=== PATIENT | male | born 1945 | race Caucasian/White ===

== ENCOUNTER 2017-01-16 12:20 | Observation (INO) | payer MEDICARE, BC ==
[2017-01-16] MEDS ORDERED: Aspirin Low Dose CHEW TAB* 81 MG PO ONE (12:37)
--- NOTE | 2017-01-16 13:05 | RAD ---
HISTORY: Syncope, chest pain COMPARISONS: None VIEWS: 1: frontal portable view of the chest at 12:45 PM FINDINGS: LINES AND TUBES: A left-sided AICD pacemaker is noted. Shunt tubing is noted along the right chest. CARDIOMEDIASTINAL SILHOUETTE: The cardiomediastinal silhouette is normal for portable technique. PLEURA: The costophrenic angles are sharp. No pleural abnormalities are noted. LUNG PARENCHYMA: The lungs are clear. ABDOMEN: The upper abdomen is clear. There is no subphrenic gas. BONES AND SOFT TISSUES: The patient is status post median sternotomy. IMPRESSION: NO ACTIVE CARDIOPULMONARY DISEASE.
[2017-01-16] MEDS ORDERED: NS 0.9% 1000 ML* 1,000 ML IV SCH ×2 (13:15→16:45)
[2017-01-16 13:16] LABS: Hematocrit 38 % (42-52); Hemoglobin 12.8 g/dl (14.0-18.0); Mean Corpuscular HGB Conc 34 g/dl (31-36); Mean Corpuscular Hemoglobin 34 pg (27-31); Mean Corpuscular Volume 99 fL (80-94); Mean Platelet Volume 8 um3 (7.4-10.4); Red Cell Distribution Width 13 % (10.5-15); White Blood Count 5.4 10^3/ul (3.5-10.8)
[2017-01-16 13:32] LABS: Albumin 3.7 g/dL (3.2-5.2); BUN/Creatinine Ratio 13.5 (8-20); Calcium 8.8 mg/dL (8.6-10.3); EGFR African American 72.3 (>60); EGFR Non-African American 56.3 (>60); Globulin 2.6 g/dL (2-4); Magnesium 2.2 mg/dL (1.9-2.7); Potassium 4.3 mmol/L (3.5-5.0); Total Bilirubin 0.4 mg/dL (0.2-1.0); Total Protein 6.3 g/dL (6.4-8.9)
[2017-01-16 13:33] LABS: Troponin I 0.02 ng/mL (<0.04)
[2017-01-16 14:43] LABS: TSH (Thyroid Stimulating Horm) 2.07 mcIU/mL (0.34-5.60)
[2017-01-16] MEDS ORDERED: NS 0.9% 250 ML* 250 ML IV ONE (15:26)
--- NOTE | 2017-01-16 16:09 | ED ---
Mariela Coronel Alfonso, scribed for Rubén Harvey MD on 01/16/17 at 1312 . Syncope/Near Syncope - HPI Summary HPI Summary: This patient is a 71 year old M BIBA to [facility] accompanied by with a chief complaint of syncope episode at [facility] that lasted about 15 minutes this morning. Pts reports that he just limped out. Pt reports having a defibrillator/pacemaker which was doing funny things. The patient rates the pain 1/10 in severity. Symptoms aggravated by nothing. Symptoms alleviated by spontaneous resolution. Patient reports recent illness (cold), LOC, pallor, low blood pressure, weakness, and diaphoresis. Patient denies loss of appetite, chest pain, palpations, melena, nausea, blood in stool, SOB, abdominal pain, and calf swelling. - History Of Current Complaint Chief Complaint: EDSyncope Time Seen by Provider: 01/16/17 12:51 Hx Obtained From: Patient Onset/Duration: Sudden Onset, Resolved Timing: Constant Context: Witnessed Activity At Onset: Other - evangelical Aggravating Factor(s): Nothing Alleviating Factor(s): Spontaneous Resolution Associated Signs And Symptoms: Other - recent illness (cold), LOC, pallor, low blood pressure, weakness, and diaphoresis. Patient denies loss of appetite, chest pain, palpations, melena, nausea, blood in stool, SOB, abdominal pain, and calf swelling. - Allergies/Home Medications Allergies/Adverse Reactions: Allergies Allergy/AdvReac Type Severity Reaction Status Date / Time Amiodarone Allergy Severe Difficulty Verified 01/16/17 12:48 Breathing JENNIFER Inhibitors Allergy Mild See Comment Verified 01/16/17 12:48 Aspirin [ASA] Allergy Mild Rash Verified 01/16/17 12:48 Beta Adrenergic Blockers Allergy Mild See Comment Verified 01/16/17 12:48 Clopidogrel [From Plavix] Allergy Mild See Comment Verified 01/16/17 12:48 Isosorbide Nitrate Allergy Unknown Verified 01/16/17 12:48 [From Imdur] Reaction Details IVP dye Allergy Mild Hives Uncoded 01/16/17 12:48 PMH/Surg Hx/FS Hx/Imm Hx Previously Healthy: No Endocrine/Hematology History: Reports: Hx Diabetes Cardiovascular History: Reports: Hx Congestive Heart Failure, Hx Coronary Artery Disease, Hx Hypercholesterolemia, Hx Hypertension Musculoskeletal History: Reports: Hx Osteoporosis Infectious Disease History: No Infectious Disease History: Denies: Traveled Outside the [place] in Last 30 Days - Family History Known Family History: Positive: Cardiac Disease - [place], Other - lung cancer, blood cancer - Social History Alcohol Use: None Hx Substance Use: No Substance Use Type: Reports: None Hx Tobacco Use: No Smoking Status (MU): Never Smoked Tobacco Review of Systems Positive: Skin Diaphoresis, Other - recent illness (cold) Positive: Other - low blood pressure. Negative: Palpitations, Chest Pain Negative: Shortness Of Breath Positive: Other - negative melena, blood in stool, loss of appetite. Negative: Abdominal Pain, Nausea Negative: Edema Positive: Other - Pallor Neurological: Other - LOC Positive: Weakness, Syncope All Other Systems Reviewed And Are Negative: Yes Physical Exam - Summary Physical Exam Summary: General: well-appearing, no pain distress Skin: warm, color reflects adequate perfusion, dry Head: normal Eyes: EOMI, SOCRATES ENT: normal Neck: supple, nontender Respiratory: CTA, breath sounds present Cardiovascular: RRR Abdomen: soft, nontender Bowel: present Musculoskeletal: normal, strength/ROM intact Neurological: normal, sensory/motor intact, A&O x3 Psychological: affect/mood appropriate Triage Information Reviewed: Yes Vital Signs On Initial Exam: Initial Vitals Temp Pulse Resp BP Pulse Ox 97.9 F 81 15 116/82 97 01/16/17 12:31 01/16/17 12:31 01/16/17 12:31 01/16/17 12:31 01/16/17 12:31 Vital Signs Reviewed: Yes - Jackelyn Coma Scale Coma Scale Total: 15 Diagnostics - Vital Signs Vital Signs Temp Pulse Resp BP Pulse Ox 01/16/17 12:31 97.9 F 81 15 116/82 97 - Laboratory Lab Results: Lab Results 01/16/17 01/16/17 01/16/17 Range/Units 13:05 13:05 13:05 WBC 5.4 (3.5-10.8) 10^3/ul RBC 3.80 L (4.0-5.4) 10^6/ul Hgb 12.8 L (14.0-18.0) g/dl Hct 38 L (42-52) % MCV 99 H (80-94) fL MCH 34 H (27-31) pg MCHC 34 (31-36) g/dl RDW 13 (10.5-15) % Plt Count 188 (150-450) 10^3/ul MPV 8 (7.4-10.4) um3 Neut % (Auto) 61.4 (38-83) % Lymph % (Auto) 17.7 L (25-47) % [place] % (Auto) 19.1 H (1-9) % Eos % (Auto) 1.2 (0-6) % Baso % (Auto) 0.6 (0-2) % Absolute Neuts (auto) 3.3 (1.5-7.7) 10^3/ul Absolute Lymphs (auto) 1.0 (1.0-4.8) 10^3/ul Absolute Monos (auto) 1.0 H (0-0.8) 10^3/ul Absolute Eos (auto) 0.1 (0-0.6) 10^3/ul Absolute Basos (auto) 0 (0-0.2) 10^3/ul Absolute Nucleated RBC 0 10^3/ul Nucleated RBC % 0.1 INR (Anticoag Therapy) (0.89-1.11) APTT (26.0-36.3) seconds Sodium 135 (133-145) mmol/L Potassium 4.3 (3.5-5.0) mmol/L Chloride 102 (101-111) mmol/L Carbon Dioxide 29 (22-32) mmol/L Anion Gap 4 (2-11) mmol/L BUN 17 (6-24) mg/dL Creatinine 1.26 H (0.67-1.17) mg/dL Est GFR ( Amer) 72.3 (>60) Est GFR (Non-Af Amer) 56.3 (>60) BUN/Creatinine Ratio 13.5 (8-20) Glucose 105 H (70-100) mg/dL Lactic Acid 1.1 (0.5-2.0) mmol/L Calcium 8.8 (8.6-10.3) mg/dL Magnesium 2.2 (1.9-2.7) mg/dL Total Bilirubin 0.40 (0.2-1.0) mg/dL AST 18 (13-39) U/L ALT 18 (7-52) U/L Alkaline Phosphatase 46 (34-104) U/L Troponin I 0.02 (<0.04) ng/mL Total Protein 6.3 L (6.4-8.9) g/dL Albumin 3.7 (3.2-5.2) g/dL Globulin 2.6 (2-4) g/dL Albumin/Globulin Ratio 1.4 (1-3) Lipase 49 (11.0-82.0) U/L TSH 2.07 (0.34-5.60) mcIU/mL 01/16/17 Range/Units 13:05 WBC (3.5-10.8) 10^3/ul RBC (4.0-5.4) 10^6/ul Hgb (14.0-18.0) g/dl Hct (42-52) % MCV (80-94) fL MCH (27-31) pg MCHC (31-36) g/dl RDW (10.5-15) % Plt Count (150-450) 10^3/ul MPV (7.4-10.4) um3 Neut % (Auto) (38-83) % Lymph % (Auto) (25-47) % [place] % (Auto) (1-9) % Eos % (Auto) (0-6) % Baso % (Auto) (0-2) % Absolute Neuts (auto) (1.5-7.7) 10^3/ul Absolute Lymphs (auto) (1.0-4.8) 10^3/ul Absolute Monos (auto) (0-0.8) 10^3/ul Absolute Eos (auto) (0-0.6) 10^3/ul Absolute Basos (auto) (0-0.2) 10^3/ul Absolute Nucleated RBC 10^3/ul Nucleated RBC % INR (Anticoag Therapy) 2.27 H (0.89-1.11) APTT 34.8 (26.0-36.3) seconds Sodium (133-145) mmol/L Potassium (3.5-5.0) mmol/L Chloride (101-111) mmol/L Carbon Dioxide (22-32) mmol/L Anion Gap (2-11) mmol/L BUN (6-24) mg/dL Creatinine (0.67-1.17) mg/dL Est GFR ( Amer) (>60) Est GFR (Non-Af Amer) (>60) BUN/Creatinine Ratio (8-20) Glucose (70-100) mg/dL Lactic Acid (0.5-2.0) mmol/L Calcium (8.6-10.3) mg/dL Magnesium (1.9-2.7) mg/dL Total Bilirubin (0.2-1.0) mg/dL AST (13-39) U/L ALT (7-52) U/L Alkaline Phosphatase (34-104) U/L Troponin I (<0.04) ng/mL Total Protein (6.4-8.9) g/dL Albumin (3.2-5.2) g/dL Globulin (2-4) g/dL Albumin/Globulin Ratio (1-3) Lipase (11.0-82.0) U/L TSH (0.34-5.60) mcIU/mL Result Diagrams: 01/16/17 13:05 01/16/17 13:05 Lab Statement: Any lab studies that have been ordered have been reviewed, and results considered in the medical decision making process. - Radiology CXR Radiology Interpretation Completed By: Radiologist - IMPRESSION: NO ACTIVE CARDIOPULMONARY DISEASE. ED physician has reviewed this radiology report and agrees. - EKG 1252 Cardiac Rate: NL EKG Rhythm: Sinus Rhythm - BPM 81 EKG Interpretation: Biphasic T wave in V2 and V3. 2 beats are atrial paced. Course/Dx Course Of Treatment: ADMIT HOSPITALIST. NO CRITICAL CARE TIME. - Diagnoses Provider Diagnoses: Syncope, Hypotension - Physician Notifications Instructed by Provider To: Other - Consulted [facility] at 1530 who stated that the patient will not be accepted for transfer at this time because it is not a higher level of care, but if the patient were admitted they may request an inpatient to inpatient transfer. Discharge - Discharge Plan Condition: Stable Disposition: ADMITTED TO [facility] Referrals: No Primary Care Phys,NOPCP [Primary Care Provider] - The documentation as recorded by the Mariela robles Alfonso accurately reflects the service I personally performed and the decisions made by me, Rubén Harvey MD.
[2017-01-16] MEDS ORDERED: Acetaminophen TAB* 325 MG PO PRN ×2 (16:32→17:14)
[2017-01-16 17:03] LABS: Urine Bilirubin Negative (Negative); Urine Glucose Negative (Negative); Urine Nitrite Negative (Negative)
--- NOTE | 2017-01-16 18:10 | RAD ---
HISTORY: Syncope COMPARISONS: None TECHNIQUE: Multiple contiguous axial CT scans were obtained of the head without intravenous contrast. FINDINGS: HEMORRHAGE/INFARCT: There is no hemorrhage or acute infarct. MASSES/SHIFT: There is no mass or shift. EXTRA-AXIAL SPACES: There are no extra-axial fluid collections. SULCI AND VENTRICLES: A ventricular shunt catheter is noted from a right parietal craniotomy approach with the tip in the right lateral ventricle. There is no ventriculomegaly. CEREBRUM: There are no focal parenchymal abnormalities. BRAINSTEM: There are no focal parenchymal abnormalities. CEREBELLUM: There are no focal parenchymal abnormalities. VESSELS: The vessels are grossly normal. PARANASAL SINUSES: The paranasal sinuses are clear. ORBITS: The orbits are unremarkable. BONES AND SOFT TISSUE: No bone or soft tissue abnormalities are noted. OTHER: None IMPRESSION: 1. NO ACUTE INTRACRANIAL PATHOLOGY. 2. STATUS POST VENTRICULAR SHUNTING.
[2017-01-16] MEDS: Calcium Citrate TAB* 200 MG PO SCH (20:58)
[2017-01-16] MEDS: CMCS: Ranolazine (NF) 500 MG TAB PO SCH (21:00)
[2017-01-16] MEDS ORDERED: Atorvastatin* 80 MG TAB PO SCH (21:00)
[2017-01-16] MEDS ORDERED: Warfarin TAB(*) 7.5 MG PO SCH (22:00)
--- NOTE | 2017-01-17 00:05 | HP ---
CC: Dr. Mena Esquivel * HISTORY AND PHYSICAL: DATE OF ADMISSION: 01/16/17 PRIMARY CARE PROVIDER: Dr. Mena Esquivel from [facility], phone number, [phone], [place], [place]. CHIEF COMPLAINT: Syncope. HISTORY OF PRESENT ILLNESS: Alex Nixon is a 71-year-old male with history of diabetes, ischemic cardiomyopathy with EF of 30%, chronic kidney disease who presented to the hospital after he had a syncopal episode. The patient stated that he was visiting in [place] and was attending a friend's . He stated that he was standing up in the line to give condolences to the patient's family member, he was standing in the line for approximately 10 minutes, and then he felt very weak and "bad." By bad, he described that he had generalized weakness. He stated that he sat down and subsequently his witnessed him "slump over" with ashen skin and rolling pill, lasted several seconds and resolved spontaneously. The patient had no neuro deficits on evaluation. The patient's stated that he was moving everything and he did not have a facial droop. He was not confused upon awakening and he did not have bowel or bladder incontinence. The patient presented to the ED with systolic pressures in the 100s range. He stated he drank a cup of coffee today in the morning in the breakfast, but did not eat anything at the yet. His initial evaluation was at 12:30 p.m. He stated that when the EMT checked his sugars, it was in the 80s, but his blood glucose level in the hospital was noted to be 105. So far, his workup is unremarkable. His ICD was interrogated and it shows no arrhythmias. The patient does have frequent PACs on EKG which I suspect is his baseline. He is going to be placed on overnight observation with the diagnosis of syncope. PAST MEDICAL HISTORY: Extensive and includes: 1. Coronary artery disease, 2 stents, one in 2000 and one in 2003. 2. History of ischemic cardiomyopathy with EF of 30%, status post ICD placement in the past. 3. History of ischemic stroke in 2014 with no residual deficit. 4. History of right hip replacement in 2013. 5. History of diabetes with episodes of postprandial hypoglycemia. 6. Osteoporosis. 7. Chronic kidney disease. 8. Spinal surgery of the lumbar spine. 9. History of sixth nerve palsy in 2007 that resolved. 10. History of shunt for hydrocephalus in June 2007. 11. Bilateral inguinal hernia repair in 2005. 12. "Blood clot in the left leg" in 2004. 13. History of catheter ablation for an arrhythmia in 2002. 14. The patient stated that he had vascular bypass surgery on the left leg in 2002 as well as triple bypass of his heart in 2002. 15. History of dyslipidemia. 16. History of tonsillectomy in 2000. 17. History of partial colon resection for cancer, surgery in 1998 followed by chemotherapy. 18. History of stomach ulcer surgery in 1988. CURRENT MEDICATIONS: Include: 1. Tylenol on a p.r.n. basis. 2. Lipitor 80 mg daily. 3. Calcium citrate 500 in the morning and 500 in the evening. 4. Centrum vitamin 1 tablet daily. 5. Furosemide 20 mg daily. 6. Glyset 25 mg three times a day. 7. Nitrostat on a p.r.n. basis. 8. Pantoprazole 40 mg daily. 9. Ranexa. The patient takes 1000 mg in the morning and 1000 mg in the evening. 10. Vitamin D 1000 units daily. 11. Coumadin 7.5 mg a day. 12. Colace 100 mg daily. ALLERGIES: Include ASPIRIN, IV DYE, BETA BLOCKERS, JENNIFER INHIBITORS, PLAVIX, AMIODARONE, IMDUR. The patient also has lactose intolerance. SOCIAL HISTORY: The patient denies any current tobacco use, but he has history of 40 pack year smoking and quit in 2000. He denies any alcohol or drug use. He lives with his who is his surrogate. FAMILY HISTORY: Reviewed and noncontributory. REVIEW OF SYSTEMS: Please see history of present illness. The patient stated that he usually is able to exercise anywhere from 5 to 30 minutes depending on the intensity of exercise until he needs to stop and take a breath. He denies leg swelling. He stated that he usually drinks 2 cups of coffee and today in the morning he drank only one. The patient has a history of postprandial hypoglycemia and he states that he feels weak and sleepy after he eats a large meal. The patient denies any chest pain or shortness of breath. The patient stated that several years ago, he had a similar episode of syncope and "nothing was found." All of the remaining 14 systems were reviewed with the patient and were otherwise negative. PHYSICAL EXAMINATION GENERAL: The patient is a very pleasant 71-year-old male who is in no acute distress. Alert, awake, and oriented x3. VITAL SIGNS: Blood pressure of 106/71, heart rate of 92 and irregular with PACs on the monitor, respiratory rate 12, oxygen saturation 98% on room air, temperature 97.9. Orthostatic vitals after the patient received 200 cc of IV fluid bolus yielded lying blood pressure of 112/66 with a heart rate of 74, second blood pressure of 107/67 with a heart rate of 85 and standing blood pressure of 106/71 with a heart rate of 92. The patient's heart rate increased and his blood pressure lowered. I suspect that he likely has orthostatic symptoms. HEENT: Head: Atraumatic, normocephalic. Eyes: Pupils are equal, reactive to light and accommodation. Oropharynx clear. Mucosa moist. NECK: Supple. No JVD. No bruits bilaterally. RESPIRATORY: Clear to auscultation bilaterally. CARDIOVASCULAR: Regular rate and rhythm, no murmur. ABDOMEN: Soft and nontender. Bowel sounds are present in all 4 quadrants. EXTREMITIES: There is no edema. Pulses are +2 bilaterally. No clubbing or cyanosis. NEUROLOGIC EVALUATION: On neuro evaluation, speech is clear. Cranial nerves II through XII grossly intact. Motor strength is 5/5 bilaterally. SKIN: On evaluation of the skin, no ecchymotic areas or rashes noted. PSYCHIATRIC EVALUATION: Oriented x3 with no evidence of anxiety or depression. DIAGNOSTIC STUDIES: The patient's EKG showed sinus rhythm with multiple PVCs with heart rate of 81 beats per minute, intraventricular conduction delay and T- wave inversions in leads V1 to V3. There is no old EKG available for comparison. ASSESSMENT AND PLAN: 1. The patient had a syncopal episode today. His ICD was interrogated and it showed no ventricular tachycardias or other marked arrhythmias. At this point, his systolic pressures are soft and he does have mild orthostasis on his blood pressure checks after he received 250 mL of IV fluids. At this point, the patient is going to be placed on gentle intravenous hydration for another 500 mL total bearing in mind that the patient has a history of ischemic cardiomyopathy with EF of 30%. I will also restart his Lasix tomorrow and I will obtain transthoracic echocardiogram as well as monitor the patient on project superintendent bed with followup troponins and neuro checks. 2. The patient has history of chronic kidney disease. I suspect that his creatinine of1.2 is his baseline. 3. In regards to the patient's diabetes, for the time being, the patient did not appear to be hypoglycemic while he presented to the ED and syncope does not appear to be hypoglycemia related; however, the patient does have history of postprandial hypoglycemia. We will check the patient's blood glucose levels 3 times a day without any treatment for the time being. His Glyset is going to be held for the time being. 4. In regards to the patient's coronary artery disease, the patient has no symptoms of chest pain or shortness of breath. His troponin is negative. We will follow up with his troponins and obtain an echocardiogram in the morning. 5. The patient is on Coumadin, I believe that is for atrial fibrillation, although the patient stated that he had history of "ablation of an arrhythmia" in the past. At this point, I will continue his Coumadin. His INR is therapeutic today at 2.27. 6. For DVT prophylaxis, the patient is going to be continued on Coumadin, which is therapeutic. 7. The patient's code status is full and his surrogate is his . TIME SPENT: Approximately 72 minutes were spent on admission of this patient, more than half of that time was spent [id number] with the patient during the interview and physical exam. [id number]/[facility] #: [id number] GORAN
[2017-01-17 05:53] LABS: BUN/Creatinine Ratio 11.5 (8-20); Calcium 8.5 mg/dL (8.6-10.3); EGFR Non-African American 63.8 (>60); Potassium 3.9 mmol/L (3.5-5.0)
[2017-01-17 08:45] VITALS: BP 99/54
[2017-01-17] MEDS: Calcium Citrate TAB* 200 MG PO SCH (08:53)
[2017-01-17] MEDS ORDERED: Warfarin TAB(*) 7.5 MG PO SCH (09:00)
[2017-01-17] MEDS ORDERED: Cholecalciferol TAB* 1000 UNITS PO SCH (09:00)
[2017-01-17] MEDS ORDERED: Atorvastatin* 80 MG TAB PO SCH (09:00)
[2017-01-17] MEDS ORDERED: Furosemide TAB* 20 MG PO SCH (09:00)
[2017-01-17] MEDS ORDERED: Docusate CAP* 100 MG PO SCH (09:00)
[2017-01-17] MEDS: CMCS: Ranolazine (NF) 500 MG TAB PO SCH (09:01)
--- NOTE | 2017-01-17 09:02 | ECHO ---
Patient: LENNY LOWE [facility] Rec#: [id number] : 1945 Date: 01/17/2017 Age: 71y Height: 180.34 cm / 71.0 in Weight: 81.19 kg / 178.9 lbs Sex: M BSA: 2.01 Room#: 431 Admit Date#: 01/16/2017 Type: Inpatient Reading: Te Tuttle MD [employer] Supervisor: [facility] Transthoracic Echocardiogram Indication: Syncope BP: 97/52 HR: 85 Rhythm: Paced Findings History: DM,s/pCABG 2002,s/pPCI ' and ,s/p AICD implant,s/p ablation,ischemic CVA 2014. Technical Comments: The study is technically limited due to poor apical windows. Completed at 0840. Left Ventricle: The left ventricular chamber size is normal. Severe global hypokinesis of the left ventricle is observed. There is severely decreased left ventricular systolic function. The estimated ejection fraction is 25-30%. Post surgical hypokinesis of the interventricular septum is observed consistent with coronary artery bypass. Abnormal left ventricular diastolic function is observed. Left Atrium: The left atrium is mildly dilated. Right Ventricle: The right ventricular cavity size is normal. The right ventricular global systolic function is low normal.on technically limited imaging. A pacemaker wire is visualized in the right ventricle. Right Atrium: The right atrial cavity size is normal. Aortic Valve: The aortic valve structure is not well visualized. There is no evidence of aortic regurgitation. There is no evidence of aortic stenosis. Mitral Valve: The mitral valve leaflets are mildly thickened. There is a trace of mitral regurgitation. Tricuspid Valve: The tricuspid valve leaflets are normal. There is mild tricuspid regurgitation. No pulmonary hypertension is noted. There is no tricuspid stenosis. Pulmonic Valve: The pulmonic valve appears normal. There is trace to mild pulmonic regurgitation. There is no pulmonic stenosis. Pericardium: There is no significant pericardial effusion. Aorta: There is no dilatation of the ascending aorta. There is no dilatation of the aortic arch. There is no dilation of the aortic root. Pulmonary Artery: The main pulmonary artery appears normal. Venous: The inferior vena cava appears normal in size. There is a greater than 50% respiratory change in the inferior vena cava dimension. Conclusions There is severely decreased left ventricular systolic function. The estimated ejection fraction is 25-30%. Severe global hypokinesis of the left ventricle is observed. The left ventricular chamber size is normal. Abnormal left ventricular diastolic function is observed. The left atrium is mildly dilated. Functionally benign heart valves. There is no prior echocardiogram available to compare with at this time. Measurements Name Value Normal Range RVIDd (AP) 2D 2.1 cm (0.9 - 2.6) RVDdMajor (2D) 2.5 cm (2.2 - 4.4) RAd ISD 4CH 4.8 cm (3.4 - 4.9) RA (A4C)W 4.2 cm (2.9 - 4.6) IVSd (2D) 0.6 cm (0.6 - 1) LVPWd (2D) 0.8 cm (0.6 - 1) LVIDd (2D) 5.4 cm (3.6 - 5.4) LVIDs (2D) 4.8 cm - LV FS (2D) 11 % (25 - 45) Aortic Annulus 2 cm (1.4 - 2.6) Ao root diameter (2D) 3 cm (2.1 - 3.5) Ascending Ao 2.9 cm (2.1 - 3.4) Aortic arch 3 cm (1.8 - 3.4) Descending Ao 0.5 cm - LA dimension (AP) 2D 3.5 cm (2.3 - 3.8) LAd ISD 4CH 4.9 cm (2.9 - 5.3) LA ISD 4CH W 5.5 cm (2.5 - 4.5) Name Value Normal Range LA ESV SP 4CH (A/L) 51 ml - LA ESV SP 2CH (A/L) 66 ml - LA ESV BP (A/L) 60 ml - LA ESV BP (A/L) index 29.98 ml/m2 - LA ESV SP 4CH (MOD) 46 ml - LA ESV SP 2CH (MOD) 56 ml - Name Value Normal Range MV E-wave Vmax 0.7 m/sec - MV deceleration time 219 msec - MV A-wave Vmax 0.7 m/sec - MV E:A ratio 20.85 ratio - LV septal e' Vmax 0.09 m/sec - LV lateral e' Vmax 0.07 m/sec - LV E:e' septal ratio 7.78 ratio - LV E:e' lateral ratio 10 ratio - Name Value Normal Range AV Vmax 0.8 m/sec - AV VTI 14.6 cm - AV peak gradient 2.68 mmHg - AV mean gradient 1.45 mmHg - LVOT Vmax 0.7 m/sec - LVOT VTI 14.6 cm - LVOT peak gradient 1.91 mmHg - LVOT mean gradient 0.84 mmHg - Name Value Normal Range TR Vmax 2.2 m/sec - TR peak gradient 20 mmHg - RAP 3 mmHg - RVSP 23 mmHg - IVC diameter 1.3 cm - Name Value Normal Range PV Vmax 0.6 m/sec - PV peak gradient 1.68 mmHg -
--- NOTE | 2017-01-18 03:52 | DS ---
CC: Dr. Mena Esquivel * DISCHARGE SUMMARY: DATE OF ADMISSION: 01/16/17 DATE OF DISCHARGE: 01/17/17 PRIMARY CARE PROVIDER: Dr. Mena Esquivel from [facility], phone number, . DISCHARGE DIAGNOSIS: Syncope most likely due to orthostasis. SECONDARY DIAGNOSES: 1. History of carotid disease. 2. History of ischemic cardiomyopathy with EF of 30%. 3. History of cerebrovascular accident. 4. Diabetes. 5. Chronic kidney disease. 6. 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 7. History of atrial fibrillation, catheter ablation in 2002. 8. Dyslipidemia. 9. Status post vascular bypass surgery in the leg in 2002. 10. History of partial colon resection for cancer. 11. History of stomach ulcer surgery. MEDICATIONS AT DISCHARGE: Unchanged from admission include: 1. Tylenol on a p.r.n. basis. 2. Lipitor 80 mg daily. 3. Calcium citrate 500 b.i.d. 4. Multivitamin 1 tablet daily. 5. Furosemide 20 mg daily. 6. Glyset 25 mg three times a day. 7. Nitrostat on a p.r.n. basis. 8. Protonix 40 mg daily. 9. Ranexa 1000 mg in the morning and 1000 mg in the evening. 10. Vitamin D3 1000 units daily. 11. Coumadin 7.5 mg daily. 12. Colace 100 mg daily. LABORATORY DATA: Throughout his hospital stay included D-dimer of below 200. INR on the day of discharge was 1.95. On 01/17/17, sodium of 135, potassium 3.9 , chloride 103, carbon dioxide 28, BUN 13, creatinine 0.13. Brain CT obtained on admission, impression: "No acute intracranial pathology. Status post ventricular shunting." Transthoracic echocardiogram showed EF of 25% to 30% with left ventricular chamber size within normal limits and functionally benign heart valves. HOSPITALIZATION COURSE: Alex Nixon is a 71-year-old male with history of multiple chronic conditions as mentioned above who presented after he had a syncopal episode. The patient stated that he was standing in a line in a for approximately 10 minutes, felt weak, sat down and then his witnessed him to be "slumped over" for a few seconds. He regained consciousness without any residual deficits. He was not confused afterwards and there was no incontinence noted. The patient's systolic pressures were in 100s and the the patient's urine appeared concentrated. It was suspected the patient was orthostatic. He was observed on telemetry monitoring bed, was placed on gentle intravenous hydration. His potline monitor did not show any marked evidence apart from frequent PACs and PVCs. We also interrogated the patient's pacemaker, which showed no marked arrhythmias. The patient's troponins continued to be negative throughout his hospital stay and he is going to be discharged with recommendation to follow up with his primary care provider in approximately 4 to 7 days. PHYSICAL EXAMINATION AT THE TIME OF DISCHARGE: Unchanged from admission. [id number]/[facility] #: [id number] MTDD
== END 2017-01-17 13:23 | disposition home or self-care (01) ==
LOC: ED 12:20 → MEDTELE 15:56
PROVIDERS: ADMIT Internal Medicine; ATTEND Internal Medicine
DX: R55 Syncope and collapse (principal); I25.5 Ischemic cardiomyopathy; Z86.73 Personal history of transient ischemic attack (TIA), and cerebral infarction without residual deficits; E11.9 Type 2 diabetes mellitus without complications; N18.9 Chronic kidney disease, unspecified; I48.91 Unspecified atrial fibrillation; E78.5 Hyperlipidemia, unspecified; Z79.01 Long term (current) use of anticoagulants; Z79.899 Other long term (current) drug therapy; Z88.8 Allergy status to other drugs, medicaments and biological substances; Z95.810 Presence of automatic (implantable) cardiac defibrillator; I49.1 Atrial premature depolarization; I51.7 Cardiomegaly
CPT/HCPCS: 36415; 70450; 71010; 80048; 80053; 81003; 83605; 83690; 83735; 83880; 84443; 84484; 85025; 85379; 85610; 85730; 87040; 93005; 93306; 96360; 96361; 99284; A9270-GY; G0378